=== PATIENT | female | born 1995 | race Caucasian/White ===

== ENCOUNTER 2016-11-29 15:33 | Emergency (ER) | payer OTHER ==
[~2016-11-29 15:33] MED LIST: AMOXICILLIN875 MG PO; ANTIVERT PO; BACTRIM DS TABL1 TA1 PO; KEFLEX500 MG PO; MEDROL4 MG/DOSE- PO; NAPROSYN500 MG PO; NO MEDICATIONS; PHENERGAN W/CO120 ML PO; PHENERGAN25 M1 PO; PYRIDIUM PO; ZITHROMAX PO; ZOFRAN ODT4 MG SL; ZOFRAN ODT4 MG/UDTAB PO
[2016-12-05] MEDS ORDERED: BACTRIM PO (16:26)
== END 2016-11-29 15:37 | disposition left against medical advice (07) ==
LOC: CED 15:33
DX: Z53.21 Procedure and treatment not carried out due to patient leaving prior to being seen by health care provider (principal)

== ENCOUNTER → 2016-12-05 16:30 | Emergency (ER) | payer OTHER ==
[2016-12-05 15:44] LABS: URINE APPEARANCE CLEAR; URINE BILIRUBIN NEG (NEG); URINE BLOOD TRACE-INTACT (NEG); URINE COLOR YELLOW; URINE GLUCOSE NEG (NORM); URINE KETONE NEG (NEG); URINE LEUKOCYTE ESTERASE 1+ (NEG); URINE NITRATE POS (NEG); URINE PROTEIN NEG (NEG); URINE SOURCE CLEAN CATCH
[2016-12-05 15:55] LABS: MICRO INDICATED? YES
[2016-12-05 15:56] LABS: CULTURE INDICATED? YES; URINE BACTERIA 1+ (NEG); URINE RBC 0-2 /[HPF] (0-2); URINE SQUAMOUS EPITHELIAL CELL MODERATE /[HPF]
[~2016-12-05 16:30] MED LIST changes: +BACTRIM PO
== END | disposition home or self-care (01) ==
LOC: SED 16:30
PROVIDERS: Emergency Medicine
DX: N39.0 Urinary tract infection, site not specified (principal); Z90.89 Acquired absence of other organs; Z79.2 Long term (current) use of antibiotics
CPT/HCPCS: 81003; 84703; 87086; 87088; 87186; 99284

== ENCOUNTER 2016-12-06 21:09 | Emergency (ER) | payer OTHER ==
[2016-12-06 21:42] LABS: URINE SOURCE CLEAN CATCH
[2016-12-06 21:45] LABS: URINE APPEARANCE SL CLOUDY; URINE BILIRUBIN POS (NEG); URINE BLOOD 1+ (NEG); URINE COLOR DK YELLOW; URINE GLUCOSE NEG (NORM); URINE KETONE TRACE (NEG); URINE LEUKOCYTE ESTERASE 1+ (NEG); URINE NITRATE NEG (NEG); URINE PROTEIN 1+ (NEG)
[2016-12-06 21:47] LABS: MICRO INDICATED? YES
[2016-12-06 21:52] LABS: BASOPHIL# 0.1 X10e3 (0-0.3); BASOPHIL% 0.4 % (0-2.5); HEMATOCRIT 35.9 % (35.0-45.0); HEMOGLOBIN 11.6 gm/dL (12.0-16.0); LYMPHOCYTE# 2.1 X10e3 (1.0-3.5); LYMPHOCYTE% 14.8 % (17.0-45.0); MEAN CELL VOLUME 70.6 FL (83-96); MEAN CORPUSCULAR HEMOGLOBIN 22.7 PG (28-34); MEAN CORPUSCULAR HGB CONC 32.2 g/dL (30-36); MEAN PLATELET VOLUME 10.3 FL (6.5-11.5); MONOCYTE# 1.3 X10e3 (0-1.0); MONOCYTE% 9.1 % (3.0-12.0); NEUTROPHIL# 10.7 X10e3 (1.5-7.1); NEUTROPHIL% 75.7 % (40-75); PLATELET COUNT 177 X10e3 (140-420); RED BLOOD COUNT 5.09 X10e (3.90-5.30); RED CELL DISTRIBUTION WIDTH 15.3 % (11.0-15.5); WHITE BLOOD COUNT 14.1 X10e3 (4.0-10.5)
[2016-12-06 21:54] LABS: CULTURE INDICATED? YES; URINE AMORPHOUS SEDIMENT AMORP URATES; URINE BACTERIA 3+ (NEG); URINE MUCUS PRESENT; URINE RBC 25-50 /[HPF] (0-2); URINE SQUAMOUS EPITHELIAL CELL MODERATE /[HPF]; URINE WBC 25-50 /[HPF] (0-5)
[2016-12-06 21:55] LABS: DIFF IND NO
[2016-12-06 22:03] LABS: BUN/CREATININE RATIO 16.66; CALCIUM SERUM 8.6 mg/dL (8.4-10.2); CREATININE SERUM 0.9 mg/dL (0.6-1.4); GLOM FILT RATE Estimated 90.2 mL/min (>60); POTASSIUM 3.8 mmol/L (3.5-5.1)
== END 2016-12-06 23:06 | disposition home or self-care (01) ==
LOC: SED 21:09
PROVIDERS: Physician Assistant Medical
DX: N39.0 Urinary tract infection, site not specified (principal); N11.1 Chronic obstructive pyelonephritis; F17.210 Nicotine dependence, cigarettes, uncomplicated
CPT/HCPCS: 36415; 80048; 81003; 85025; 87086; 96374; 96375; 99284; J1885; J2405

== ENCOUNTER 2017-01-23 20:06 | Emergency (ER) | payer OTHER ==
[2017-01-23 20:49] LABS: URINE SOURCE CLEAN CATCH
[2017-01-23 20:51] LABS: URINE APPEARANCE HAZY; URINE BILIRUBIN NEG (NEG); URINE BLOOD NEG (NEG); URINE COLOR YELLOW; URINE GLUCOSE NEG (NORM); URINE KETONE NEG (NEG); URINE LEUKOCYTE ESTERASE TRACE (NEG); URINE NITRATE NEG (NEG); URINE PH 6.5 (5-8); URINE PROTEIN NEG (NEG); URINE SPECIFIC GRAVITY <=1.005 (1.003-1.035); URINE UROBILINOGEN 0.2 MG/DL (NORM)
[2017-01-23 20:56] LABS: MICRO INDICATED? YES
[2017-01-23 20:57] LABS: URINE BACTERIA 1+ (NEG); URINE RBC 0-2 /[HPF] (0-2); URINE SQUAMOUS EPITHELIAL CELL MODERATE /[HPF]
== END 2017-01-23 21:19 | disposition home or self-care (01) ==
LOC: SED 20:06
PROVIDERS: Emergency Medicine
DX: O99.89 Other specified diseases and conditions complicating pregnancy, childbirth and the puerperium (principal); F17.210 Nicotine dependence, cigarettes, uncomplicated; Z3A.08 8 weeks gestation of pregnancy
CPT/HCPCS: 81003; 99283